=== PATIENT | male | born 1980 | race Caucasian/White ===

== ENCOUNTER 2018-07-18 10:40 | Emergency (ER) | payer MEDICARE, MEDICAID | END 2018-07-18 12:09 | disposition left against medical advice (07) | LOC: ER 10:41 | DX: R42 Dizziness and giddiness (principal); Z53.21 Procedure and treatment not carried out due to patient leaving prior to being seen by health care provider ==

== ENCOUNTER 2019-01-24 07:26 | Emergency (ER) | payer MEDICARE, MEDICAID ==
[~2019-01-24] VITALS: Ht 167.6 cm; Wt 68.6 kg
[~2019-01-24 07:26] MED LIST: LIT300C PO; RISP1TAB13 PO
[2019-01-24 07:41] VITALS: BP 113/76
[2019-01-24] MEDS ORDERED: dexamethasone sod phosphate 10mg/ml inj IM STA (08:04)
[2019-01-24] MEDS ORDERED: diphenhydrAMINE 25mg capsule PO ONE (08:05)
[2019-01-24] MEDS ORDERED: triamcinolone acetonide 40mg/ml inj IM ONE (08:05)
== END 2019-01-24 09:41 | disposition home or self-care (01) ==
LOC: ER 07:27
DX: L23.7 Allergic contact dermatitis due to plants, except food (principal); F12.10 Cannabis abuse, uncomplicated; F20.9 Schizophrenia, unspecified; F15.10 Other stimulant abuse, uncomplicated; Z59.0 Homelessness
CPT/HCPCS: 96372; 99283; J1100; J3301; Q0163

== ENCOUNTER → 2019-02-01 | Emergency (ER) | payer MEDICARE, MEDICAID ==
[~2019-02-01] VITALS: Ht 167.6 cm; Wt 66.0 kg
[2019-02-01 07:16] VITALS: BP 123/82
--- NOTE | 2019-02-01 07:26 | NUR ---
Pt ambulated to the bathroom and did not come back. registration stated pt. said he wanted to leave and pt. walked out the lobby door. Charge nurse and MD aware. No IV was in place.
== END | disposition left against medical advice (07) ==
LOC: ER 07:13
DX: R07.81 Pleurodynia (principal); Z53.21 Procedure and treatment not carried out due to patient leaving prior to being seen by health care provider